=== PATIENT | male | born 1990 ===

== ENCOUNTER 2017-01-07 03:09 | Emergency (ER) | payer SELFPAY ==
[2017-01-07] MEDS ORDERED: Albuterol-Ipratrop 3 mg / 0.5 (3 ml) UD ONE ×2 (03:17→03:35)
[2017-01-07] MEDS ORDERED: Albuterol-Ipratrop 3 mg / 0.5 (3 ml) UD INH STA (03:20)
[2017-01-07 03:25] VITALS: O2SAT 100
[2017-01-07 03:32] VITALS: RESP 19
[2017-01-07] MEDS ORDERED: Dexamethasone 4 mg/1 ml IM STA (03:33)
[2017-01-07] MEDS: Albuterol-Ipratrop 3 mg / 0.5 (3 ml) UD IH SCH ×2 (03:41→04:08)
[2017-01-07] MEDS ORDERED: Dexamethasone 4 mg/1 ml ONE (03:42)
--- NOTE | 2017-01-07 04:08 | C.PDOC ---
History Of Present Illness 26 year old male with a Hx of asthma who presents to the ER with a complaint of a mild intermittent cough for the past 2 weeks. Patient reports last night he had an episode of chest tightness and SOB which prompted ER visit. Patient reports he ran out of his medication a few months ago; denies fever or chills.Pt denies recent asthma admissions or intubations. Time Seen by Provider: 01/07/17 03:21 Chief Complaint (Nursing): Shortness Of Breath History Per: Patient History/Exam Limitations: no limitations Onset/Duration Of Symptoms: Hrs Initiating Event: Out Of Medications Current Respiratory Medications: None Associated Symptoms: Chest Pain (Tightness). denies: Fever, Chills Recent travel outside of the [place]: No Past Medical History Reviewed: Historical Data, Nursing Documentation, Vital Signs Vital Signs: Last Vital Signs Temp 98 F 01/07/17 03:20 Pulse 92 H 01/07/17 04:03 Resp 19 01/07/17 04:03 BP 156/86 H 01/07/17 04:17 Pulse Ox 100 01/07/17 04:10 - Medical History PMH: Asthma Surgical History: No Surg Hx Family History: States: Unknown Family Hx - Social History Hx Alcohol Use: No Hx Substance Use: No - Immunization History Hx Tetanus Toxoid Vaccination: No Hx Influenza Vaccination: No Hx Pneumococcal Vaccination: No Review Of Systems Constitutional: Negative for: Fever, Chills Cardiovascular: Positive for: Chest Pain Respiratory: Positive for: Shortness of Breath Gastrointestinal: Negative for: Nausea, Vomiting Physical Exam - Physical Exam Appears: Non-toxic Skin: Normal Color, Warm, Dry Head: Atraumatic, Normacephalic Oral Mucosa: Moist Chest: Symmetrical, No Tenderness Cardiovascular: Rhythm Regular, No Murmur Respiratory: Decreased Breath Sounds, No Rales, No Rhonchi, Wheezing (Expiratory ) Gastrointestinal/Abdominal: Soft, No Tenderness Neurological/Psych: Oriented x3, Normal Speech, Normal Cognition ED Course And Treatment O2 Sat by Pulse Oximetry: 100 (Room air) Pulse Ox Interpretation: Normal Progress Note: Decadron and nebulizer treatment administered. Pt will follow up in clinic. All return instructions were given and understood by pt Reevaluation Time: 05:08 Reassessment Condition: Improved (Pt feels better , PF much improved, Good AE, ambulatory with no dyspnea.) Disposition Counseled Patient/Family Regarding: Diagnosis, Need For Followup, Rx Given - Disposition Referrals: [facility] [Outside] Disposition: HOME/ ROUTINE Disposition Time: 05:02 Condition: STABLE Additional Instructions: [facility] Sigue en clinica Regresa si peor Prescriptions: Albuterol HFA [Ventolin HFA 90 mcg/actuation (8 g)] 2 puff IH [id number] #1 puff Albuterol 0.083% [Albuterol 0.083% Inhal Mikala (2.5 mg/3 ml) UD] 2.5 mg IH TID # 100 neb Benzonatate [Tessalon Perles] 100 mg PO TID #20 sgl Cetirizine HCl [Zyrtec] 10 mg PO DAILY #20 capsule predniSONE [Prednisone] 40 mg PO DAILY #10 tab Instructions: Asthma (ED) Forms: [employer] (Mohawk) Print Language: [id number] - Clinical Impression Clinical Impression: Asthma exacerbation - Scribe Statement The provider has reviewed the documentation as recorded by the Scribhao Hernandez All medical record entries made by the Scribe were at my direction and personally dictated by me. I have reviewed the chart and agree that the record accurately reflects my personal performance of the history, physical exam, medical decision making, and the department course for this patient. I have also personally directed, reviewed, and agree with the discharge instructions and disposition.
[2017-01-07 05:08] VITALS: BP 128/76; PULSE 101; TEMP 97.6
== END 2017-01-07 05:20 | disposition home or self-care (01) ==
LOC: C.ER 03:09
DX: J45.901 Unspecified asthma with (acute) exacerbation (principal)
CPT/HCPCS: 96372; 99285; J1100